=== PATIENT | female | born 1970 | race Two or more races ===

== ENCOUNTER 2016-05-20 22:31 | Emergency (ER) | payer MEDICAID ==
[~2016-05-20] VITALS: Ht 160 cm; Wt 86.2 kg
[2016-05-20 22:55] VITALS: BP 110/69
[2016-05-20 23:21] LABS: Urine Bilirubin Negative (Negative); Urine Blood Negative /uL (Negative); Urine Color Yellow (Yellow); Urine Glucose Normal (Normal); Urine Ketone Negative (Negative); Urine Nitrite Negative (Negative); Urine RBC 1 /hpf (0 - 4); Urine Squamous Epithelial Cell FEW /hpf (<5); Urine Urobilinogen Normal (Negative); Urine pH 6.5 (5.0-8.0)
[2016-05-20 23:33] LABS: Basophils # (auto) 0 uL; Basophils % (auto) 0.4 % (0.0-2.0); Eosinophils # (auto) 0.2 uL; Eosinophils % (auto) 1.3 % (0.0-7.0); Hematocrit 38.5 % (36.0-46.0); Hemoglobin 12.9 g/dL (12.2-16.2); Lymphocytes # (auto) 1.8 uL; Lymphocytes % (auto) 15.3 % (10.0-50.0); Mean Corpuscular Hgb Conc. 33.6 g/dL (32.0-36.0); Mean Corpuscular Volume 86.1 fL (80.0-100.0); Mean Platelet Volume 7.6 fL (7.4-10.4); Monocytes # (auto) 0.7 uL; Neutrophils # (auto) 8.9 uL; Platelet Count (auto) 273 10^3/uL (140-450); Red Cell Distribution Width 13.1 % (11.6-16.0); White Blood Cell 11.6 10^3/uL (4.4-10.8)
[2016-05-20 23:52] LABS: Albumin 3.8 g/dL (3.4-5.0); BUN/Creatinine Ratio 11.3; Calcium 7.9 mg/dL (8.5-10.1); Magnesium 2.4 mg/dL (1.6-2.6); Potassium 3.8 mmol/L (3.5-5.1)
[2016-05-20 23:54] LABS: Bilirubin, Total 0.7 mg/dL (0.2-1.0); Total Protein 7.4 g/dL (6.4-8.2)
== END 2016-05-21 07:01 | disposition left against medical advice (07) ==
LOC: ER 22:43
DX: R07.9 Chest pain, unspecified (principal); Z53.21 Procedure and treatment not carried out due to patient leaving prior to being seen by health care provider
CPT/HCPCS: 36415; 71010; 80053; 81001; 81025; 83735; 84443; 84484; 85025; 85049; 93005

== ENCOUNTER 2018-04-26 01:02 | Emergency (ER) | payer MEDICAID ==
[~2018-04-26] VITALS: Ht 160 cm; Wt 87.1 kg
[2018-04-26 02:27] LABS: Basophils # (auto) 0.1 uL; Basophils % (auto) 0.5 % (0.0-2.0); Eosinophils # (auto) 0.1 uL; Eosinophils % (auto) 1.3 % (0.0-7.0); Hematocrit 38.9 % (36.0-46.0); Hemoglobin 12.9 g/dL (12.2-16.2); Lymphocytes # (auto) 1.7 uL; Lymphocytes % (auto) 17.5 % (10.0-50.0); Mean Corpuscular Hemoglobin 28.4 pg (28.0-32.0); Mean Corpuscular Hgb Conc. 33.2 g/dL (32.0-36.0); Mean Corpuscular Volume 85.5 fL (80.0-100.0); Monocytes # (auto) 0.6 uL; Monocytes % (auto) 5.9 % (0.0-12.0); Neutrophils # (auto) 7.3 uL; Neutrophils % (auto) 74.8 % (37.0-80.0); Platelet Count (auto) 261 10^3/uL (140-450); Red Blood Cells 4.55 10^6/uL (4.0-5.20); Red Cell Distribution Width 12.9 % (11.8-14.3); White Blood Cell 9.8 10^3/uL (4.4-10.8)
[2018-04-26] MEDS ORDERED: MORPHINE SULFATE 4 MG/ML SYR/VIAL IV ONE (02:30)
[2018-04-26] MEDS ORDERED: ONDANSETRON HCL 4 MG/2 ML VIAL IV ONE (02:30)
[2018-04-26 02:46] LABS: Calcium 8.9 mg/dL (8.5-10.1)
[2018-04-26 02:50] LABS: BUN/Creatinine Ratio 12.2; Bilirubin, Total 0.4 mg/dL (0.2-1.0); Total Protein 7.9 g/dL (6.4-8.2)
[2018-04-26] MEDS ORDERED: LORazepam 2MG/ML-1ML VIAL IV ONE (04:45)
[2018-04-26 05:00] VITALS: BP 136/87
[2018-04-26] MEDS ORDERED: LORazepam 0.5 MG TAB PO ONE (05:45)
== END 2018-04-26 06:08 | disposition home or self-care (01) ==
LOC: EDBD 01:02 → ER 01:21
DX: F41.9 Anxiety disorder, unspecified (principal); F32.9 Major depressive disorder, single episode, unspecified; J45.909 Unspecified asthma, uncomplicated; F17.210 Nicotine dependence, cigarettes, uncomplicated; R51 Headache; Z87.442 Personal history of urinary calculi; Z90.49 Acquired absence of other specified parts of digestive tract
CPT/HCPCS: 36415; 70450; 80053; 84484; 85025; 93005; 96374; 96375; 99284; J2270; J2405

== ENCOUNTER 2018-08-11 00:09 | Emergency (ER) | payer MEDICAID ==
[~2018-08-11] VITALS: Ht 160 cm; Wt 88.5 kg
[2018-08-11 00:20] VITALS: BP 150/87
[2018-08-11] MEDS ORDERED: KETOROLAC TROMETH 60MG/2ML VIAL IM ONE (02:15)
== END 2018-08-11 02:47 | disposition home or self-care (01) ==
LOC: ER 00:09
DX: S62.603A Fracture of unspecified phalanx of left middle finger, initial encounter for closed fracture (principal); S62.601A Fracture of unspecified phalanx of left index finger, initial encounter for closed fracture; S66.912A Strain of unspecified muscle, fascia and tendon at wrist and hand level, left hand, initial encounter; F17.210 Nicotine dependence, cigarettes, uncomplicated; J45.909 Unspecified asthma, uncomplicated; Z87.442 Personal history of urinary calculi; Z90.49 Acquired absence of other specified parts of digestive tract; W18.39XA Other fall on same level, initial encounter; Y93.89 Activity, other specified; Y99.8 Other external cause status; Y92.89 Other specified places as the place of occurrence of the external cause
CPT/HCPCS: 29130; 73110; 73130; 96372; 99283; J1885

== ENCOUNTER 2019-02-18 16:53 | Emergency (ER) | payer MEDICAID ==
[~2019-02-18] VITALS: Ht 160 cm; Wt 88.5 kg
[2019-02-18 18:41] LABS: Basophils # (auto) 0 uL; Basophils % (auto) 0.5 % (0.0-2.0); Eosinophils # (auto) 0.5 uL; Eosinophils % (auto) 5.5 % (0.0-7.0); Hematocrit 40.3 % (36.0-46.0); Hemoglobin 13.2 g/dL (12.2-16.2); Lymphocytes # (auto) 2.9 uL; Lymphocytes % (auto) 32.6 % (10.0-50.0); Mean Corpuscular Hemoglobin 27.9 pg (28.0-32.0); Mean Corpuscular Hgb Conc. 32.8 g/dL (32.0-36.0); Mean Corpuscular Volume 85.2 fL (80.0-100.0); Monocytes # (auto) 0.5 uL; Monocytes % (auto) 5.8 % (0.0-12.0); Neutrophils # (auto) 4.9 uL; Neutrophils % (auto) 55.6 % (37.0-80.0); Nucleated Red Blood Cells % 0.2 %; Platelet Count (auto) 263 10^3/uL (140-450); Red Blood Cells 4.74 10^6/uL (4.0-5.20); Red Cell Distribution Width 13.6 % (11.8-14.3); White Blood Cell 8.8 10^3/uL (4.4-10.8)
[2019-02-18] MEDS ORDERED: IPRATROPIUM BROM 0.5 MG/2.5ML INH SOL HHN ONE (18:45)
[2019-02-18] MEDS ORDERED: methylPREDNISolone SOD SUCC 125 MG/2 ML VL IV ONE (18:45)
[2019-02-18] MEDS ORDERED: ALBUTEROL SULF 2.5 MG/0.5ML(0.5%) NEB SOLN HHN ONE (18:45)
[2019-02-18 18:53] LABS: Urine Bacteria NONE SEEN /hpf (None Seen); Urine Blood Negative /uL (Negative); Urine Hyaline Cast FEW /lpf (0 - 2); Urine Mucus FEW (None Seen); Urine Specific Gravity 1.011 (1.001-1.035); Urine WBC <1 /hpf (0 - 5)
[2019-02-18 18:55] LABS: Alanine Aminotransferase 57 U/L (13-56); Albumin 3.9 g/dL (3.4-5.0); Anion Gap 8 (5-15); Aspartate Aminotransferase 34 U/L (15-37); BUN/Creatinine Ratio 11.6; Blood Urea Nitrogen 8 mg/dL (7-18); Calcium 8.7 mg/dL (8.5-10.1); Carbon Dioxide 25 mmol/L (21-32); Chloride 106 mmol/L (98-107); GFR African American 118 mL/min; GFR Non-African American 97 mL/min; Glucose 109 mg/dL (74-106); Potassium 3.4 mmol/L (3.5-5.1); Sodium 139 mmol/L (136-145)
[2019-02-18 19:00] LABS: Alkaline Phosphatase 114 U/L (45-117); Bilirubin, Total 0.5 mg/dL (0.2-1.0); Total Protein 8.1 g/dL (6.4-8.2)
[2019-02-18 21:40] VITALS: BP 126/72
== END 2019-02-18 21:43 | disposition home or self-care (01) ==
LOC: ER 16:53 → EDBD 16:53 → ER 21:43
DX: J45.909 Unspecified asthma, uncomplicated (principal); R07.9 Chest pain, unspecified; Z87.442 Personal history of urinary calculi; Z87.891 Personal history of nicotine dependence
CPT/HCPCS: 36415; 71046; 80053; 81001; 83735; 84484; 85025; 93005; 94644; 94761; 96374; 99285; J2930; J7611; J7644

== ENCOUNTER 2019-06-25 17:57 | Emergency (ER) | payer MEDICAID ==
[~2019-06-25] VITALS: Ht 160 cm; Wt 84.4 kg
[2019-06-25 21:30] VITALS: BP 129/84
[2019-06-25] MEDS ORDERED: HYDROcodone-ACET 10/325MG TAB PO ONE (21:45)
== END 2019-06-25 22:22 | disposition home or self-care (01) ==
LOC: ER 17:57
DX: H57.12 Ocular pain, left eye (principal); J45.909 Unspecified asthma, uncomplicated; Z90.49 Acquired absence of other specified parts of digestive tract; Z98.51 Tubal ligation status; Z87.442 Personal history of urinary calculi; Z87.891 Personal history of nicotine dependence

== ENCOUNTER 2020-03-07 13:22 | Emergency (ER) | payer OTHER, MEDICAID ==
[~2020-03-07] VITALS: Ht 160 cm; Wt 86.6 kg
[2020-03-07] MEDS ORDERED: TETRACAINE HCL 0.5% OPTH(EYE) SOLN 4ML LEFTEYE ONE (16:45)
[2020-03-07] MEDS ORDERED: FLUORESCEIN SOD 1 MG TEST STRIP LEFTEYE ONE (16:45)
[2020-03-07 17:47] VITALS: BP 129/79
== END 2020-03-07 17:48 | disposition home or self-care (01) ==
LOC: ER 13:22
DX: H10.89 Other conjunctivitis (principal)

== ENCOUNTER 2020-03-30 16:18 | Emergency (ER) | payer OTHER, MEDICAID ==
[~2020-03-30] VITALS: Ht 160 cm; Wt 87.5 kg
[2020-03-30 16:59] VITALS: BP 133/73
[2020-03-30] MEDS ORDERED: cefTRIAXone SOD 1,000 MG VL IM ONE (18:15)
[2020-03-30] MEDS ORDERED: LIDOCAINE 2% (LOCAL ANESTH.) PF 5ml SDV ONE (18:30)
== END 2020-03-30 19:03 | disposition home or self-care (01) ==
LOC: ER 16:18
DX: J45.998 Other asthma (principal); J18.9 Pneumonia, unspecified organism; Z20.828 Contact with and (suspected) exposure to other viral communicable diseases
CPT/HCPCS: 36415; 71045; 87426; 96372; 99284; C9803; J0696; J2001; U0003

== ENCOUNTER 2020-04-24 12:56 | Emergency (ER) | payer OTHER, MEDICAID ==
[~2020-04-24] VITALS: Ht 160 cm; Wt 66.2 kg
[2020-04-24 13:08] VITALS: BP 122/85
== END 2020-04-24 17:19 | disposition home or self-care (01) ==
LOC: ER 12:56
DX: J12.9 Viral pneumonia, unspecified (principal); Z20.828 Contact with and (suspected) exposure to other viral communicable diseases
CPT/HCPCS: 36415; 71045; 87426; 99284; U0003

== ENCOUNTER 2020-04-29 16:54 | Emergency (ER) | payer OTHER, MEDICAID ==
[~2020-04-29] VITALS: Ht 160 cm; Wt 87.5 kg
[2020-04-29 17:30] VITALS: BP 145/78
[2020-04-29] MEDS ORDERED: methylPREDNISolone SOD SUCC 125 MG/2 ML VL IM ONE (18:00)
[2020-04-29] MEDS ORDERED: cefTRIAXone SOD 1,000 MG VL IM ONE (18:00)
== END 2020-04-29 19:49 | disposition home or self-care (01) ==
LOC: ER 16:54
DX: J45.909 Unspecified asthma, uncomplicated (principal); F41.1 Generalized anxiety disorder; Z20.828 Contact with and (suspected) exposure to other viral communicable diseases; Z87.442 Personal history of urinary calculi; Z90.49 Acquired absence of other specified parts of digestive tract; Z98.51 Tubal ligation status
CPT/HCPCS: 36415; 71045; 87426; 93005; 96372; 99285; J0696; J2930

== ENCOUNTER 2020-06-20 15:53 | Emergency (ER) | payer OTHER, MEDICAID ==
[~2020-06-20] VITALS: Ht 160 cm; Wt 87.5 kg
[2020-06-20] MEDS ORDERED: ASPirin 81 mg TAB PO ONE (16:30)
[2020-06-20 16:50] LABS: Basophils # (auto) 0 10 ^3/uL (0-0.2); Basophils % (auto) 0.5 % (0.0-2.0); Eosinophils # (auto) 0.3 10 ^3/uL (0-0.8); Eosinophils % (auto) 3.4 % (0.0-7.0); Hematocrit 41.5 % (36.0-46.0); Hemoglobin 14.2 g/dL (12.2-16.2); Lymphocytes # (auto) 2.4 10 ^3/uL (0.4-5.4); Lymphocytes % (auto) 29.2 % (10.0-50.0); Mean Corpuscular Hemoglobin 28.9 pg (28.0-32.0); Mean Corpuscular Hgb Conc. 34.1 g/dL (32.0-36.0); Mean Corpuscular Volume 84.9 fL (80.0-100.0); Monocytes # (auto) 0.6 10 ^3/uL (0-1.3); Monocytes % (auto) 6.9 % (0.0-12.0); Neutrophils # (auto) 4.9 10 ^3/uL (1.6-8.6); Nucleated Red Blood Cells % 0.2 %; Platelet Count (auto) 301 10^3/uL (140-450); Red Blood Cells 4.89 10^6/uL (4.0-5.20); Red Cell Distribution Width 13.4 % (11.8-14.3); White Blood Cell 8.2 10^3/uL (4.4-10.8)
[2020-06-20 17:10] LABS: Anion Gap 6 (5-15); Blood Urea Nitrogen 8 mg/dL (7-18); Calcium 8.6 mg/dL (8.5-10.1); Carbon Dioxide 25 mmol/L (21-32); Chloride 106 mmol/L (98-107); Glucose 103 mg/dL (74-106); Potassium 4.1 mmol/L (3.5-5.1); Sodium 137 mmol/L (136-145)
[2020-06-20 17:14] LABS: INR 0.97 (0.9-1.15); Partial Thromboplastin Time 25.5 sec (23.0-31.2)
[2020-06-20 17:15] LABS: Alanine Aminotransferase 51 U/L (13-56); Alkaline Phosphatase 105 U/L (45-117); Aspartate Aminotransferase 30 U/L (15-37); BUN/Creatinine Ratio 11.8; Bilirubin, Total 0.5 mg/dL (0.2-1.0); GFR African American 119 mL/min; GFR Non-African American 99 mL/min; Total Protein 8.5 g/dL (6.4-8.2)
[2020-06-20 19:38] VITALS: BP 116/75
[2020-06-20] MEDS ORDERED: IOHEXOL 350 MG/ML 100ML IJ ONE (19:39)
[2020-06-20] MEDS ORDERED: HYDROcodone-ACET 10/325MG TAB PO ONE (20:00)
== END 2020-06-20 21:43 | disposition home or self-care (01) ==
LOC: ER 15:54
DX: R07.81 Pleurodynia (principal); R07.89 Other chest pain; F17.210 Nicotine dependence, cigarettes, uncomplicated; Z90.49 Acquired absence of other specified parts of digestive tract; Z20.822 Contact with and (suspected) exposure to COVID-19
CPT/HCPCS: 36415; 71046; 71275; 80053; 83735; 83880; 84443; 84484; 85025; 85379; 85610; 85730; 87426; 93005; 99285; Q9967

== ENCOUNTER 2020-08-25 18:39 | Emergency (ER) | payer OTHER, MEDICAID ==
[~2020-08-25] VITALS: Ht 160 cm; Wt 88.9 kg
[2020-08-25 21:00] VITALS: BP 133/91
[2020-08-25] MEDS ORDERED: ONDANSETRON ODT 4 MG TAB PO ONE (22:45)
[2020-08-25] MEDS ORDERED: ACETAMINOPHEN/CODEINE#3 (300/30mg) TAB PO ONE (22:45)
== END 2020-08-25 23:04 | disposition home or self-care (01) ==
LOC: ER 18:40
DX: S16.1XXA Strain of muscle, fascia and tendon at neck level, initial encounter (principal); S09.90XA Unspecified injury of head, initial encounter; R42 Dizziness and giddiness; W19.XXXA Unspecified fall, initial encounter; Y93.89 Activity, other specified; Y92.89 Other specified places as the place of occurrence of the external cause; Y99.8 Other external cause status
CPT/HCPCS: 70450; 72125; 93005; 99285; Q0162

== ENCOUNTER 2021-05-01 19:41 | Emergency (ER) | payer MEDICAID, OTHER ==
[~2021-05-01] VITALS: Ht 160 cm; Wt 86.2 kg
[2021-05-01 23:40] VITALS: BP 145/92
[2021-05-01] MEDS ORDERED: KETOROLAC TROMETH 60MG/2ML VIAL IM ONE (23:45)
[2021-05-01] MEDS ORDERED: cefTRIAXone SOD 1,000 MG VL IM ONE (23:45)
== END 2021-05-02 00:22 | disposition home or self-care (01) ==
LOC: ER 19:45
DX: L02.219 Cutaneous abscess of trunk, unspecified (principal); J45.909 Unspecified asthma, uncomplicated; Z90.49 Acquired absence of other specified parts of digestive tract; Z98.51 Tubal ligation status; Z87.442 Personal history of urinary calculi
CPT/HCPCS: 96372; 99284; J0696; J1885

== ENCOUNTER 2021-05-30 11:23 | Emergency (ER) | payer MEDICAID ==
[~2021-05-30] VITALS: Ht 160 cm; Wt 92.1 kg
[2021-05-30] MEDS ORDERED: ONDANSETRON ODT 4 MG TAB PO ONE (12:15)
[2021-05-30] MEDS ORDERED: AZIT1POW PO (14:18)
[2021-05-30] MEDS ORDERED: METH4PAK PO (14:18)
[2021-05-30] MEDS ORDERED: ZINC220C8 PO (14:18)
[2021-05-30 17:10] VITALS: BP 109/70
== END 2021-05-30 17:21 | disposition home or self-care (01) ==
LOC: ER 11:23
DX: U07.1 COVID-19 (principal); J12.82 Pneumonia due to coronavirus disease 2019; J45.909 Unspecified asthma, uncomplicated; Z90.49 Acquired absence of other specified parts of digestive tract
CPT/HCPCS: 36415; 71045; 87426; 99284; Q0162